=== PATIENT | female | born 1990 | race Caucasian/White ===

== ENCOUNTER 2016-09-15 05:58 | Emergency (ER) | payer SELFPAY | END 2016-09-15 07:48 | disposition left against medical advice (07) | LOC: E/R 05:58 | DX: Z53.21 Procedure and treatment not carried out due to patient leaving prior to being seen by health care provider (principal) ==

== ENCOUNTER 2017-03-13 06:12 | Emergency (ER) | payer OTHER ==
[~2017-03-13] VITALS: Ht 162.6 cm; Wt 74.8 kg
[2017-03-13 06:14] VITALS: Ht 162.6 cm; Wt 74.8 kg
[2017-03-13] MEDS ORDERED: HC30CR25 TOP (06:34)
--- NOTE | 2017-03-13 07:15 | ERD ---
ER Documentation Chief Complaint Chief Complaint scaterred body rashes w/ body itchiness HPI 26-year-old female complaining of scattered body rashes. Patient states it she was sitting at her friend's house last night and was worried that there were fleas and she wants to be evaluated. She states she is homeless and she took a shower yesterday. She has never had rashes like this before. Patient is schizophrenic and is currently taking Risperdal and Zoloft. Denies surgical history. NKDA. Social history: smokes and drinks. ROS All systems reviewed and are negative except as per history of present illness. Medications Home Meds Active Scripts Hydrocortisone* Topical (Hydrocortisone* Topical) 2.5%-28.3 Gm Cream..g., 1 APPLIC TOP BID, #1 TUB Prov:SUMANTH RUSSO PA-C 03/13/17 Allergies Allergies: Coded Allergies: No Known Drug Allergies (Verified Allergy, Unknown, 03/13/16) PMhx/Soc History of Surgery: Yes (CS) Anesthesia Reaction: No Hx Neurological Disorder: No Hx Respiratory Disorders: No Hx Cardiac Disorders: No Hx Psychiatric Problems: Yes (DEPRESSION, ANXIETY, SI, SCHIZOPHRENIA) Hx Miscellaneous Medical Probl: No Hx Alcohol Use: Yes (rarely) Hx Substance Use: No Hx Tobacco Use: Yes Smoking Status: Unknown if ever smoked Physical Exam Vitals Vital Signs Date Time Temp Pulse Resp B/P Pulse Ox O2 Delivery O2 Flow Rate FiO2 03/13/17 06:14 96.7 82 20 123/70 100 Physical Exam GENERAL: The patient is well-appearing, well-nourished, in no acute distress HEENT: Atraumatic. Conjunctivae are pink. Pupils equal, round, and reactive to light. There is no scleral icterus. Tympanic membranes clear bilaterally. Oropharynx clear. No nystagmus or photophobia. NECK: C-spine is soft and supple. There is no meningismus. There is no cervical lymphadenopathy. CHEST: Clear to auscultation bilaterally. There are no rales, wheezes or rhonchi. HEART: Regular rate and rhythm. No murmurs, clicks, rubs or gallops. No S3 or S4. SKIN: There is no apparent rash or petechiae. The skin is warm and dry. No insects or vesicles. Skin exam is within normal limits. No linear burrowing Procedures/MDM MDM: 26-year-old female complaining of rash. Patient's exam is non-concerning. It is within normal limits. I have low suspicion for parasitic infection or viral rash. Patient's skin appears to be dry which may have caused rash and irritation. Recommend patient to use lotions at home and I will write for hydrocortisone cream. Patient is told if symptoms change or worsen to return to the ER. All questions answered at discharge Departure Diagnosis: Primary Impression: Rash Condition: Stable Patient Instructions: Self-Care for Skin Rashes Referrals: [facility] YOU HAVE RECEIVED A MEDICAL SCREENING EXAM AND THE RESULTS INDICATE THAT YOU DO NOT HAVE A CONDITION THAT REQUIRES URGENT TREATMENT IN THE EMERGENCY DEPARTMENT. FURTHER EVALUATION AND TREATMENT OF YOUR CONDITION CAN WAIT UNTIL YOU ARE SEEN IN YOUR DOCTORS OFFICE WITHIN THE NEXT 1-2 DAYS. IT IS YOUR RESPONSIBILITY TO MAKE AN APPOINTMENT FOR FOLOW-UP CARE. IF YOU HAVE A PRIMARY DOCTOR --you should call your primary doctor and schedule an appointment IF YOU DO NOT HAVE A PRIMARY DOCTOR YOU CAN CALL OUR PHYSICIAN REFERRAL HOTLINE AT IF YOU CAN NOT AFFORD TO SEE A PHYSICIAN YOU CAN CHOSE FROM THE FOLLOWING [facility] [address] [facility]. [facility] [address] [facility] [facility] [address] [facility] [facility] [address] [facility] [address] [facility] [facility]. [address] [place] Additional Instructions: FOLLOW UP WITH YOUR PRIMARY CARE PHYSICIAN TOMORROW.Return to this facility if you are not improving as expected. SUMANTH RUSSO PA-C Mar 13, 2017 07:15
== END 2017-03-13 07:36 | disposition home or self-care (01) ==
LOC: FTE 06:12
DX: R21 Rash and other nonspecific skin eruption (principal); F17.210 Nicotine dependence, cigarettes, uncomplicated
CPT/HCPCS: 99283

== ENCOUNTER 2017-03-25 23:21 | Emergency (ER) | payer SELFPAY ==
[~2017-03-25] VITALS: Ht 165.1 cm; Wt 76.0 kg
[~2017-03-25 23:21] MED LIST: HC30CR25 TOP
[2017-03-26 00:24] VITALS: Ht 165.1 cm; Wt 76.0 kg
== END 2017-03-26 01:35 | disposition left against medical advice (07) ==
LOC: E/R 23:21
DX: Z53.21 Procedure and treatment not carried out due to patient leaving prior to being seen by health care provider (principal)

== ENCOUNTER 2018-05-30 09:20 | Emergency (ER) | payer OTHER ==
[~2018-05-30] VITALS: Ht 162.6 cm; Wt 80.0 kg
[2018-05-30 09:29] VITALS: Ht 162.6 cm; Wt 80.0 kg
[2018-05-30] MEDS ORDERED: PERMETHRIN 1% TOP (09:48)
--- NOTE | 2018-05-30 09:54 | ERD ---
ER Documentation Chief Complaint Chief Complaint I have a headache and want to be checked for lice I'm homeless HPI 27-year-old female homeless who presents the emergency room describing an itchy scalp. The patient describes several weeks of symptoms. Patient is concerned she may have head lice. She is asking for food. While she noted headache in triage she denies headache to me. She denies any falls or injuries. She denies any intoxication, no suicidal thoughts and no acute psychosis. ROS All systems reviewed and are negative except as per history of present illness. Medications Home Meds Active Scripts [Permethrin 1% Cream] No Conflict Check, 1 APPLIC TOP ONCE, #4 TUB Prior to application, wash hair with conditioner-free shampoo; rinse with water and towel dry. Apply a sufficient amount of lotion or cream rinse to saturate the hair and scalp (especially behind the ears and nape of neck). Leave on hair for 10 minutes (but no longer), then rinse off with warm water; remove remaining nits with nit comb. Prov:AMIE SANTIAGO MD 05/30/18 Allergies Allergies: Coded Allergies: No Known Drug Allergies (Verified Allergy, Unknown, 12/06/17) PMhx/Soc Medical and Surgical Hx: pt denies Medical Hx, pt denies Surgical Hx History of Surgery: No Anesthesia Reaction: No Hx Neurological Disorder: No Hx Respiratory Disorders: No Hx Cardiac Disorders: No Hx Psychiatric Problems: Yes Hx Miscellaneous Medical Probl: No Hx Alcohol Use: Yes Hx Substance Use: Yes (METH) Hx Tobacco Use: Yes Smoking Status: Current every day smoker FmHx Family History: No diabetes Physical Exam Vitals Vital Signs Date Temp Pulse Resp B/P (MAP) Pulse Ox O2 O2 Flow FiO2 Time Delivery Rate 05/30/18 98.2 115 18 112/83 98 09:29 (93) Physical Exam General: Disheveled, no acute distress Head: Normocephalic, atraumatic. Eyes: Pupils equally reactive, EOM intact ENT: Moist mucous membranes Neck: Supple, no lymphadenopathy Respiratory: Lungs clear bilaterally, no distress Cardiovascular: RRR, no murmurs, rubs, or gallops Abdominal: Soft, non-tender, non-distended, no peritoneal signs : Deferred MSK: No edema, no unilateral swelling, 5/5 strength Neurologic: Alert and oriented, moving all extremities, normal speech, no focal weakness, no cerebellar signs Skin: No rash, scalp without evidence of head lice, no rash Psych: Normal mood, no SI or HI Results 24 hrs Current Medications Medications Dose Sig/Keisha Start Time Status Last (Trade) Ordered Route PRN Stop Time Admin Dose Reason Admin Lorazepam 1 mg ONCE ONCE 05/30/18 05/30/18 (Ativan) PO 10:00 05/30/18 09:49 10:01 Procedures/MDM The patient is undergone a medical screening examination and exhibits no signs or symptoms concerning for acute psychosis. The patient has no clinical signs of head lice but a trial of permethrin shampoo would be reasonable. The patient was offered food and was given food. Patient was offered social worker palliative care and states that she would not like to speak to social worker palliative care officer. Patient is requesting discharge after anxiety medication. 1 mg of Ativan provided. At this point the patient can be safely discharged. The patient is ambulatory, able to navigate the community, no evidence of acute psychosis and again refusing social worker palliative care resources. Departure Diagnosis: Primary Impression: Anxiety Additional Impressions: Hunger Encounter type: initial encounter Qualified Codes: T73.0XXA - Starvation, initial encounter Homeless Condition: Good Patient Instructions: Anxiety Reaction Additional Instructions: Call your primary care doctor TOMORROW for an appointment during the next 1 WEEK.Tell the home organizer that you were referred from this facility.See the doctor sooner or return here if your condition worsens before your appointment time. AMIE SANTIAGO MD May 30, 2018 09:54
[2018-05-30] MEDS ORDERED: LORAZEPAM 1 MG TAB PO ONE (10:00)
[2018-05-30 11:58] VITALS: BP 110/78; PULSE 67; RESP 16
== END 2018-05-30 14:03 | disposition home or self-care (01) ==
LOC: E/R 09:20
DX: F41.9 Anxiety disorder, unspecified (principal); T73.0XXA Starvation, initial encounter; F17.210 Nicotine dependence, cigarettes, uncomplicated; Z59.0 Homelessness
CPT/HCPCS: Z7502; Z7610; 99283

== ENCOUNTER 2018-06-09 00:39 | Emergency (ER) | payer OTHER ==
[~2018-06-09] VITALS: Ht 160 cm; Wt 80.8 kg
[~2018-06-09 00:39] MED LIST changes: -HC30CR25 TOP; +PERMETHRIN 1% TOP
[2018-06-09 00:58] VITALS: Ht 160 cm; Wt 80.8 kg
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
--- NOTE | 2018-06-09 03:35 | ERD ---
ER Documentation Chief Complaint Chief Complaint suicidal ideation,no plan at this time,c/o back pain HPI This is a 19-year-old female well-known to this ER with complaint of suicidal ideation. She denies having a plan at this time. She says that she wants to kill herself however. Admits to drinking alcohol. Denies illicit drug use. Denies auditory or visual hallucinations at the time of questioning. ROS All systems reviewed and are negative except as per history of present illness. Medications Home Meds Active Scripts [Permethrin 1% Cream] No Conflict Check, 1 APPLIC TOP ONCE, #4 TUB Prior to application, wash hair with conditioner-free shampoo; rinse with water and towel dry. Apply a sufficient amount of lotion or cream rinse to saturate the hair and scalp (especially behind the ears and nape of neck). Leave on hair for 10 minutes (but no longer), then rinse off with warm water; remove remaining nits with nit comb. Prov:AMIE SANTIAGO MD 05/30/18 Allergies Allergies: Coded Allergies: No Known Drug Allergies (Verified Allergy, Unknown, 12/06/17) PMhx/Soc History of Surgery: No Anesthesia Reaction: No Hx Neurological Disorder: No Hx Respiratory Disorders: No Hx Cardiac Disorders: No Hx Psychiatric Problems: Yes (DRUG USE) Hx Miscellaneous Medical Probl: No Hx Alcohol Use: Yes Hx Substance Use: Yes (METH) Hx Tobacco Use: Yes Smoking Status: Current every day smoker Physical Exam Vitals Vital Signs Date Temp Pulse Resp B/P (MAP) Pulse Ox O2 O2 Flow FiO2 Time Delivery Rate 06/09/18 97.9 105 18 100/58 98 00:58 (72) Physical Exam Const: No acute distress Head: Atraumatic Eyes: Normal Conjunctiva ENT: Normal External Ears, Nose and Mouth. Neck: Full range of motion. No meningismus. Resp: Clear to auscultation bilaterally Cardio: Regular rate and rhythm, no murmurs Abd: Soft, non tender, non distended. Normal bowel sounds Skin: No petechiae or rashes Back: No midline or flank tenderness Ext: No cyanosis, or edema Neur: Awake and alert Psych: Normal Mood and Affect Result Diagram: 06/09/18 0120 06/09/18 0120 Results 24 hrs Laboratory Tests Test 06/09/18 01:20 White Blood Count 10.2 10^3/ul Red Blood Count 4.29 10^6/ul Hemoglobin 13.2 g/dl Hematocrit 40.7 % Mean Corpuscular Volume 94.9 fl Mean Corpuscular Hemoglobin 30.8 pg Mean Corpuscular Hemoglobin Concent 32.4 g/dl Red Cell Distribution Width 13.0 % Platelet Count 289 10^3/UL Mean Platelet Volume 11.4 fl Immature Granulocytes % 0.400 % Neutrophils % 66.0 % Lymphocytes % 27.3 % Monocytes % 5.0 % Eosinophils % 0.9 % Basophils % 0.4 % Nucleated Red Blood Cells % 0.0 /100WBC Immature Granulocytes # 0.040 10^3/ul Neutrophils # 6.7 10^3/ul Lymphocytes # 2.8 10^3/ul Monocytes # 0.5 10^3/ul Eosinophils # 0.1 10^3/ul Basophils # 0.0 10^3/ul Nucleated Red Blood Cells # 0.0 10^3/ul Sodium Level 148 mmol/L Potassium Level 3.8 mmol/L Chloride Level 109 mmol/L Carbon Dioxide Level 23 mmol/L Anion Gap 16 Blood Urea Nitrogen 10 mg/dl Creatinine 0.47 mg/dl Est Glomerular Filtrat Rate mL/min > 60 mL/min Glucose Level 125 mg/dl Calcium Level 9.3 mg/dl Total Bilirubin 0.2 mg/dl Direct Bilirubin 0.00 mg/dl Indirect Bilirubin 0.2 mg/dl Aspartate Amino Transf (AST/SGOT) 73 IU/L Alanine Aminotransferase (ALT/SGPT) 64 IU/L Alkaline Phosphatase 69 IU/L Total Protein 7.5 g/dl Albumin 4.4 g/dl Globulin 3.10 g/dl Albumin/Globulin Ratio 1.41 Serum HCG, Qualitative NEGATIVE Salicylates Level < 1.0 mg/dl Acetaminophen Level < 10.0 ug/ml Ethyl Alcohol Level 247.0 mg/dl Procedures/MDM Emergency department course: Patient seen and evaluated triage nurse and placed in bed family evaluation. Had blood work done. Was placed on one-to-one watch for security secondary to psychiatric complaint. Telemetry psychiatry evaluation. Serial examinations remained stable in the department. Medical decision making: Patient's behavioral symptoms have stabilized while in the department. Patient is medically cleared and appropriate for psychiatric evaluation and work up. No e/o neurologic, toxic, infectious, or metabolic cause. Patient was evaluated by telemetry psychiatry and recommended for involuntary 5150 hold. Medications reviewed and appreciated. Patient is pending placement at this time. Departure Diagnosis: Primary Impression: Suicidal ideation Condition: BIMAL Polanco Jun 09, 2018 03:35
[2018-06-09 08:15] VITALS: BP 102/72; PULSE 104; RESP 16
== END 2018-06-09 13:33 ==
LOC: E/R 00:39
DX: R45.851 Suicidal ideations (principal); F17.210 Nicotine dependence, cigarettes, uncomplicated
CPT/HCPCS: 36415; 80053; 80307; 84703; 85025; Z7502; Z7610

== ENCOUNTER 2018-06-25 02:37 | Emergency (ER) | payer OTHER ==
[~2018-06-25] VITALS: Ht 160 cm; Wt 79.7 kg
[2018-06-25 02:54] VITALS: Ht 160 cm; Wt 79.7 kg
--- NOTE | 2018-06-25 03:18 | ERD ---
ER Documentation Chief Complaint Chief Complaint feeling anxious/dizzy HPI The patient is a 27-year-old female, presenting to the ER because she feels very anxious after using amphetamine and alcohol, she feel suicidal does not have any plan, denies auditory/visual hallucination, headache, neck pain, chest pain, dyspnea, abdominal pain, vomiting, dysuria. She smokes and drinks and does illicit drug Past medical history: history of psychosis ROS All systems reviewed and are negative except as per history of present illness. Medications Home Meds Active Scripts [Permethrin 1% Cream] No Conflict Check, 1 APPLIC TOP ONCE, #4 TUB Prior to application, wash hair with conditioner-free shampoo; rinse with water and towel dry. Apply a sufficient amount of lotion or cream rinse to saturate the hair and scalp (especially behind the ears and nape of neck). Leave on hair for 10 minutes (but no longer), then rinse off with warm water; remove remaining nits with nit comb. Prov:AMIE SANTIAGO MD 05/30/18 Allergies Allergies: Coded Allergies: No Known Drug Allergies (Verified Allergy, Unknown, 12/06/17) PMhx/Soc History of Surgery: No Anesthesia Reaction: No Hx Neurological Disorder: No Hx Respiratory Disorders: No Hx Cardiac Disorders: No Hx Psychiatric Problems: Yes (DRUG USE) Hx Miscellaneous Medical Probl: No Hx Alcohol Use: Yes Hx Substance Use: Yes (METH) Hx Tobacco Use: Yes Physical Exam Vitals Vital Signs Date Temp Pulse Resp B/P (MAP) Pulse Ox O2 O2 Flow FiO2 Time Delivery Rate 06/25/18 94 16 127/82 100 Room Air 05:36 (97) 06/25/18 98.7 102 20 145/80 99 02:54 (101) Physical Exam Const: No acute distress. Head: Atraumatic. Eyes: Normal Conjunctiva. ENT: Normal External Ears, Nose and Mouth. Neck: Full range of motion. No meningismus. Resp: Clear to auscultation bilaterally. Cardio: Regular rate and rhythm. Abd: Soft, non distended, normal bowel sounds, non tender. Skin: No petechiae or rashes. Back: No midline or flank tenderness. Ext: No cyanosis, or edema. Neur: Awake and alert. No focal deficit Psych: Psychotic Result Diagram: 06/25/18 0300 06/25/18 0300 Results 24 hrs Laboratory Tests Test 06/25/18 03:00 06/25/18 04:03 White Blood Count 7.0 10^3/ul Red Blood Count 4.23 10^6/ul Hemoglobin 12.7 g/dl Hematocrit 39.4 % Mean Corpuscular Volume 93.1 fl Mean Corpuscular Hemoglobin 30.0 pg Mean Corpuscular Hemoglobin Concent 32.2 g/dl Red Cell Distribution Width 13.3 % Platelet Count 269 10^3/UL Mean Platelet Volume 11.3 fl Immature Granulocytes % 0.100 % Neutrophils % 53.3 % Lymphocytes % 34.2 % Monocytes % 9.6 % Eosinophils % 2.2 % Basophils % 0.6 % Nucleated Red Blood Cells % 0.0 /100WBC Immature Granulocytes # 0.010 10^3/ul Neutrophils # 3.7 10^3/ul Lymphocytes # 2.4 10^3/ul Monocytes # 0.7 10^3/ul Eosinophils # 0.2 10^3/ul Basophils # 0.0 10^3/ul Nucleated Red Blood Cells # 0.0 10^3/ul Sodium Level 143 mmol/L Potassium Level 3.5 mmol/L Chloride Level 105 mmol/L Carbon Dioxide Level 25 mmol/L Anion Gap 13 Blood Urea Nitrogen 9 mg/dl Creatinine 0.41 mg/dl Est Glomerular Filtrat Rate mL/min > 60 mL/min Glucose Level 98 mg/dl Calcium Level 9.1 mg/dl Total Bilirubin 0.1 mg/dl Direct Bilirubin 0.00 mg/dl Indirect Bilirubin 0.1 mg/dl Aspartate Amino Transf (AST/SGOT) 60 IU/L Alanine Aminotransferase (ALT/SGPT) 84 IU/L Alkaline Phosphatase 72 IU/L Total Protein 7.6 g/dl Albumin 4.6 g/dl Globulin 3.00 g/dl Albumin/Globulin Ratio 1.53 Beta HCG, Quantitative < 2.4 mIU/ml Salicylates Level < 1.0 mg/dl Acetaminophen Level < 10.0 ug/ml Ethyl Alcohol Level 67.0 mg/dl Urine Color YELLOW Urine Clarity SLIGHTLY CLOUDY Urine pH 6.0 Urine Specific [place] 1.014 Urine Ketones NEGATIVE mg/dL Urine Nitrite NEGATIVE mg/dL Urine Bilirubin NEGATIVE mg/dL Urine Urobilinogen NEGATIVE mg/dL Urine Leukocyte Esterase NEGATIVE Taylor/ul Urine Microscopic RBC 9 /HPF Urine Microscopic WBC 9 /HPF Urine Squamous Epithelial Cells FEW /HPF Urine Amorphous Crystals FEW /HPF Urine Bacteria FEW /HPF Urine Mucus FEW /HPF Urine Hemoglobin 3+ mg/dL Urine Glucose NEGATIVE mg/dL Urine Total Protein NEGATIVE mg/dl Urine Opiates Screen NEGATIVE Urine Barbiturates NEGATIVE Urine Amphetamines Screen POSITIVE Urine Benzodiazepines Screen NEGATIVE Urine Cocaine Screen NEGATIVE Urine Cannabinoids NEGATIVE Current Medications Medications Dose Sig/Keisha Start Time Status Last (Trade) Ordered Route PRN Stop Time Admin Dose Reason Admin Lorazepam 1 mg ONCE ONCE 06/25/18 DC 06/25/18 (Ativan) PO 04:30 04:40 06/25/18 04:31 Procedures/MDM MEDICAL MAKING DECISION: The patient is a 27-year-old female, presenting with acute psychosis, acute anxiety. She was treated with Ativan 1 mg p.o. for acute anxiety and psychosis with good response. The differential diagnoses considered include but are not limited to drug- induced psychosis, psychosis, medical noncompliance, anxiety attack, panic attack Departure Diagnosis: Primary Impression: Psychosis Additional Impressions: ETOH abuse Amphetamine abuse Condition: Stable Comments The patient's blood pressure was elevated (>120/80) but appears stable without evidence of hypertension emergency or urgency. The patient was counseled about the risks of hypertension and urged to pursue outpatient monitoring and therapy within a week with their primary care physician. She is cleared for psychiatric evaluation and admission LAVONNE NUNES MD Jun 25, 2018 03:18
[2018-06-25] MEDS ORDERED: LORAZEPAM 1 MG TAB PO ONE ×2 (04:30→07:30)
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
--- NOTE | 2018-06-25 07:11 | EN ---
Date/Time of Note Date/Time of Note DATE: 06/25/18 TIME: 07:08 ER Progress Note This is a 27-year-old female who had recently been placed on a 5150 by telemetry psych. I went to the bedside to evaluate the patient is nursing staff indicated that at 7:10 AM on Monday, June 25, 2018. The patient at this time states she was feeling very anxious. The patient was speaking very rapidly. She was requesting antianxiety medication. The patient had 2 security guards present. Verbal de-escalation was unable to calm the patient down and I reviewed the patient's telemetry psych recommendations which indicated IM Haldol Ativan and Benadryl for severe agitation. Therefore this was ordered by myself and given by nursing staff. The patient will continue to be monitored with direct line of sight. ANN MARIE ESPINOSA MD Jun 25, 2018 07:11
[2018-06-25] MEDS ORDERED: DIPHENHYDRAMINE 50 MG INJ IM ONE (07:30)
[2018-06-25] MEDS ORDERED: LORAZEPAM 2 MG INJ IM ONE (07:30)
[2018-06-25] MEDS ORDERED: HALOPERIDOL 5 MG INJ IM ONE (07:30)
[2018-06-25] MEDS: OLANZAPINE 5 MG TAB PO SCH ×2 (08:56→21:03)
[2018-06-26] MEDS: OLANZAPINE 5 MG TAB PO SCH (08:22)
[2018-06-26 15:19] VITALS: BP 101/62; PULSE 72; RESP 18
== END 2018-06-26 15:48 | disposition home or self-care (01) ==
LOC: E/R 02:37
DX: F10.159 Alcohol abuse with alcohol-induced psychotic disorder, unspecified (principal); F17.210 Nicotine dependence, cigarettes, uncomplicated; F15.159 Other stimulant abuse with stimulant-induced psychotic disorder, unspecified
CPT/HCPCS: 36415; 80053; 80307; 81001; 84702; 85025; 96372; J1200; J1630; J2060; Z7502; Z7610